=== PATIENT | female | born 1965 | race Caucasian/White ===

== ENCOUNTER 2019-10-27 08:57 | Outpatient (RCR) | payer OTHER, SELFPAY ==
--- NOTE | 2019-10-27 10:19 | PTOPEVAL ---
Thank you for referring Cindi Sun to [facility] [place]. Please review, sign, date and return this plan of care THAIS. I agree with and certify that the following plan of care is medically necessary. Referring Physician Date Admitting Provider: Attending Provider: Marco Alvarenga, Referring Provider: *PT Outpatient Evaluation Start: 10/27/19 09:11 Freq: Status: Active Protocol: Document 10/27/19 09:15 J (Rec: 10/27/19 09:52 [id number]) Therapy Assessment Status Assessment Status Assessment Status Evaluation Evaluation Information Problem Diagnosis neck pain, cervical radiculopathy Onset 10/21/19 Additional Evaluation Detail ndi = 56% Subjective Information patient reports she has been Query Text:As Reported By Patient/ having severe pain in the neck Family for about 1 year. she reports it is getting progressively worse. she reports she has had 3 disc replacements of the cervical spine. she reports her last surgery on the neck was in 2016. she reports she has a lot of pain, decreased mobility, and popping in the neck. she reports she has had x-rays but has not gotten the results yet. she reports she has pain down the L shoulder. she reports she does have some pain in the jaw. she reports she has increased pain with moving her head in any direction. she reports she has increased pain with driving, caring for her house, and getting dressed/doing hair. she reports she zacarias shave headaches that last all day. Prior Level of Function Comments Additional Prior Level of Function patient reports she does not Comments work. she reports she has had this pain for about a year, but has had other back and neck issues for more than a year. Pain Assessment Timing of Pain Assessment Timing of Pain Assessment Assessment Pain Scale Pain Scale Used Numeric (1 - 10) Self Report Pain Assessment Neck Reported Pain Level 7 Pain Description
--- NOTE | 2019-11-11 14:14 | PCPTNOTE ---
11/11/19-pt called and cancelled appointment for today, stating she is at Dr., and has to get x-ray for broken ribs. pt also cancelled Saturday's appointment for this week as well.-OWEN.
== END 2019-12-31 08:47 | disposition home or self-care (01) ==
LOC: CHSPT 08:57
PROVIDERS: PCP Family Medicine; Visit Provider Family Medicine
DX: M54.12 Radiculopathy, cervical region (principal); I10 Essential (primary) hypertension
CPT/HCPCS: 97014; 97110; 97162; G0283

== ENCOUNTER 2022-07-18 13:27 | Outpatient (RCR) | payer OTHER, SELFPAY ==
--- NOTE | 2022-07-18 13:44 | PTOPEVAL1 ---
Assessment and note entered by JT File, PT Evaluation Information Assessment Status Evaluation Diagnosis cervicalgia Subjective Information patient reports she is having an acute flare up of neck pain. she reports she has limited mobility, pain, and bad headaches by the end of the day. she reports she also feels she has lost strength in her L arm. she reports she has had bouts of pain like this in the past. she reports she has had 2 surgeries on her neck (3 disc replacements and fusions). she reports she has increased pain with daily activities and at the end of the day. she reports she does have pain and NTB into the L arm/ fingers. Reported Pain Level Pain Score 4: Self Report Assessment PT Clinical Summary mrs. rangel is a 56 yo woman who presents to skilled PT services for evaluation and treatment of acute on chronic cervical spine pain and L UE pain/symptoms. she presents this date with signs and symptoms of L cervical radiculopathy from DDD. she would benefit from continued skilled PT to improve her strength, rom, posture, and decrease pain to improve her quality of life and return to PLOF. Plan of Care Interventions Electrical Stimulation,Hot Pack/Cold Pack,Manual Therapy,Neuro Re-education,Patient/Caregiver Educati,Therapeutic Activities,Therapeutic Exercise PT Services Indicated Yes Treatment Frequency and 3x weekly for 12 visits Duration These treatments will address the objective and functional deficits as defined above. The patient will be advanced safely and appropriately in order for the patient to progress towards his/her prior level of function. Additional exercises will be introduced and as well as a comprehensive home exercise program upon discharge, if needed, ?to ensure carryover of functional gains achieved in the clinic. This treatment plan has been reviewed and agreement upon by the patient.
--- NOTE | 2022-09-06 11:31 | PTOPDC ---
Assessment and note entered by Dyan Rudolph, PT Evaluation Information Assessment Status Discharge Diagnosis cervicalgia Onset 07/05/22 Subjective Information Cindi Sun reports her neck is getting better. She is noting improved mobility but she still has pain and headaches. She notes the headaches and pain comes on later in the day now though. She has increased pain with driving, lifting with her arms, and performing yard work. She still has numbness in the left hand as well. She will be calling her MD for a follow up after her PT session. She feels PT has helped but has not fixed her problem. Reported Pain Level Pain Score 4: Self Report Assessment PT Clinical Summary Cindi Sun has completed 12 skilled PT visits for cervicalgia. She is reporting some improvements in cervical mobility but she still has pain and headaches. She is noting difficulty driving, lifting with her arms, and performing yard work. She objectively demonstrates decreased and painful cervical AROM, decreased left shoulder strength, and tension and tenderness in the cervical spine. She will be discharged from skilled PT and will be calling her surgeon. Plan of Care PT Services Indicated Yes
== END 2022-09-06 16:49 | disposition home or self-care (01) ==
LOC: CHSPT 13:27
PROVIDERS: PCP Family Medicine
DX: M54.12 Radiculopathy, cervical region (principal)
CPT/HCPCS: 97014; 97110; 97112; 97140; 97161; G0283

== ENCOUNTER 2022-08-22 12:41 | Emergency (ER) | payer OTHER, SELFPAY ==
[2022-08-22 12:45] VITALS: BP 131/91; PULSE 99; RESP 20; TEMP 37.3; O2SAT 100
--- NOTE | 2022-08-22 13:01 | ED.ABDPAIN ---
HPI - Abdominal Pain General Chief Complaint: Abdominal Pain Stated Complaint: abdominal pain Time Seen by Provider: 08/22/22 12:58 Source: patient Mode of arrival: ambulatory Limitations: no limitations History of Present Illness HPI narrative: 56-year-old female with a history of scoliosis status post multiple corrective surgeries, chronic neck pain, COPD, status post appendectomy presents to the ER with -- charlie horse in the right upper quadrant of the abdomen. The pain is intermittent and has been worse since yesterday. No fever. No nausea / vomiting. No dysuria or hematuria. MD elicited complaint: abdominal pain Onset (ago): day(s) ( started yesterday) Pain Consistency: intermittent Location: RUQ Severity: moderate Quality: cramping Radiation: none Migration to: no migration Exacerbating factors: nothing Relieving factors: nothing Associated symptoms: denies other symptoms Related Data Home Medications Medication Instructions Recorded Confirmed lisinopril 30 mg tablet 30 mg PO DAILY 08/22/22 08/22/22 metoprolol succinate 100 mg 100 mg PO DAILY 08/22/22 08/22/22 tablet,extended release 24 hr tiotropium bromide 18 mcg capsule 1 cap inhalation DAILY 08/22/22 08/22/22 with inhalation device (Spiriva with HandiHaler) Allergies Allergy/AdvReac Type Severity Reaction Status Date / Time No Known Allergies Allergy Verified 08/22/22 13:05 Review of Systems Review of Systems: All systems reviewed & are unremarkable except as noted in HPI and below Constitutional: Constitutional: Reports as per HPI and Reports no additional constitutional complaints Eyes: Eyes: Reports as per HPI and Reports no additional eye complaints ENT: Reports system reviewed and no additional complaints, except as documented and Reports as per HPI Cardiovascular: Cardiovascular: Reports as per HPI and Reports no additional cardiovascular complaints Respiratory: Respiratory: Reports as per HPI and Reports no additional respiratory complaints Gastrointestinal: Gastrointestinal: Reports as per HPI, Reports no additional gastrointestinal complaints and Reports abdominal pain Genitourinary: Genitourinary: Reports no additional female genitourinary complaints Musculoskeletal: Musculoskeletal: Reports no additional musculoskeletal complaints and Reports as per HPI Integumentary/Breasts: Skin/Breast: Reports system reviewed and no additional complaints, except as docu Neurologic: Reports system reviewed and no additional complaints, except as documented and Reports as per HPI Psychiatric: Psychiatric: Reports no additional psychiatric complaints and Reports as per HPI Endocrine: Endocrine: Reports no additional endocrine complaints and Reports as per HPI Hematologic/Lymphatic: Hematologic/Lymphatic: Reports no additional hematologic/lymphatic complaints and Reports as per HPI Allergic/Immunologic: Allergic/Immunologic: Reports no additional allergic/immunologic complaints and Reports as per HPI [facility] Past Medical History Medical History (Updated 08/22/22 @ 14:45 by Jeffry Romero MD) Asthma exacerbation in COPD Chronic low back pain Chronic neck pain Scoliosis Surgical History Surgical History (Updated 08/22/22 @ 13:13 by Jeffry Romero MD) Previous back surgery Exam Const: General: no acute distress Nutritional Appearance: thin Orientation/consciousness: patient oriented x3 Limitations: no limitations HENMT: Head: normal to inspection Ears: external ears normal Face/Nose/Sinus: Normal external nose present Face and sinus: normal facial exam Mouth: Yes Normal oral and palatal mucosa present Throat: posterior oropharynx normal Eyes: Conjunctivae: conjunctivae normal Pupils: Equal, round and reactive pupils present EOM: EOMs intact bilaterally Direct Ophthalmoscopy: no photophobia Neck: Neck: normal visual inspection, no lymphadenopathy and no meningeal signs Chest: Chest palpation & inspectio
[2022-08-22] MEDS: KETOROLAC 30 MG/ML VIAL (*BKC) IM (13:18)
[2022-08-22 13:25] LABS: Basophils Absolute Auto 0.03 K/mm3 (0.00-0.10); Basophils Percent Auto 0.5 % (0.0-1.0); Eosinophils Absolute Auto 0.12 K/mm3 (0.02-0.50); Hematocrit 40.1 % (35.0-49.0); Hemoglobin 12.8 g/dL (12.0-15.0); Immature Granulocyte Absolute 0.02 K/mm3 (0.00-0.00); Immature Granulocyte Percent A 0.3 % (0.0-0.0); Lymphocytes Absolute Auto 1.76 K/mm3 (1.10-4.50); Lymphocytes Percent Auto 28.7 % (18.0-42.0); Mean Corpuscular HGB Conc 31.9 g/dL (32.0-36.0); Mean Corpuscular Volume 94.1 fL (78.0-102.0); Mean Platelet Volume 10.3 fl (9.2-11.8); Monocytes Absolute Auto 0.49 K/mm3 (0.10-0.90); Neutrophils Absolute Auto 3.7 K/mm3 (1.7-7.2); Neutrophils Percent Auto 60.5 % (50.0-70.0); Platelet Count Result 271 K/mm3 (150-420); Red Blood Count 4.26 M/mm3 (4.20-5.40); Red Cell Distribution Width 13.2 % (11.6-14.4); White Blood Count 6.1 K/mm3 (4.8-10.8)
[2022-08-22 13:39] LABS: INR 0.9; Prothrombin Time 10.4 Seconds (9.50-12.10)
[2022-08-22 13:40] LABS: Alanine Aminotransferase 24 U/L (14-59); Albumin Level 3.8 g/dL (3.4-5.0); Alkaline Phosphatase 106 U/L (46-116); Anion Gap 8 mmol/L (8-16); Aspartate Amino Transferase 13 U/L (15-37); Bilirubin,Total 0.6 mg/dL (0.00-1.00); Blood Urea Nitrogen 19 mg/dL (7-18); Calcium 8.7 mg/dL (8.5-10.1); Carbon Dioxide 29 mmol/L (21-32); Chloride 101 mmol/L (98-108); Estimated CRCL calculation 58 ml/min; Estimated Glomerular Filt Rate > 60; Glucose 97 mg/dL (70-99); Lipase 25 U/L (16-77); Osmolality Calculated 288 mOsm/kg (285-295); Potassium 3.7 mmol/L (3.5-5.1); Sodium 138 mmol/L (136-145); Total Protein 7.2 g/dL (6.4-8.2)
[2022-08-22 13:45] LABS: Lactic Acid Reflex 0.8 mmol/L (0.4-2.0)
[2022-08-22 14:27] LABS: Appearance Urine Clear (Clear); Bilirubin Urine Negative (Negative); Blood Urine 1+ (Negative); Color Urine Yellow (Yellow); Glucose Urine UA Negative (Negative); Ketones Urine Negative (Negative); Leukocyte Esterase Ur Negative LEU/UL (Negative); Nitrate Urine Negative (Negative); Protein Urine Negative (Negative); Specific Grav Ur >= 1.030 (1.010-1.020); Urobilinogen Urine 0.2 mg/dL (0.2-1.0)
[2022-08-22 14:33] LABS: Add Urine Microscopic? YES; Calcium Oxalate Crystals Urine Present /hpf; Squamous Epithelial Cell Urine Occasional /hpf (Few); WBC Urine None seen /hpf (0-3)
[2022-08-22 14:34] LABS: Bacteria Urine Trace /hpf; Mucus Urine Moderate /lpf
[2022-08-22 14:52] VITALS: BP 120/94; PULSE 72; RESP 20; TEMP 36.6; O2SAT 99
== END 2022-08-22 15:02 | disposition home or self-care (01) ==
PROVIDERS: Emergency Provider Internal Medicine Critical Care Medicine; PCP Family Medicine
DX: R25.2 Cramp and spasm (principal); R10.11 Right upper quadrant pain
CPT/HCPCS: 36415; 80053; 81001; 83605; 83690; 85025; 85610; 96372; 99283; J1885

== ENCOUNTER 2022-08-27 13:23 | Outpatient (CLI) | payer OTHER, SELFPAY ==
--- NOTE | ~2022-08-27 | DEXA_ITS ---
Bone Density Report Name: DEBORAH MARCELINO Age: 57 Sex: Female Ethnicity: White Date of : 1965 Indication: postmenopausal; screening for osteoporosis; height loss; prior fracture; asthma or emphysema; Referring Provider: UNKNOWN, UNKNOWN Study: Bone densitometry was performed. Exam Date: August 27, 2022 Accession number: [id number] Bone Density: Region BMD T-score Z-score Classification Femoral Neck (Left) 0.784 -0.6 0.7 Normal Total Hip (Left) 0.820 -1.0 -0.1 Normal Femoral Neck (Right) 0.842 -0.1 1.2 Normal Total Hip (Right) 0.851 -0.7 0.1 Normal Femoral Neck Mean 0.813 -0.3 0.9 Normal Total Hip Mean 0.835 -0.9 0.0 Normal World Health Organization criteria for BMD impression classify patients as: Normal (T-score at or above -1.0), Osteopenia (T-score between -1.0 and -2.5), or Osteoporosis (T-score at or below -2.5). 10-year Fracture Risk: FRAX not reported because: All T-scores for Spine Total, Hip Total, Femoral Neck at or above -1.0 Prior hip or vertebral fracture Clinical Information Provided by Patient: Have had a previous hip or vertebral fracture Has had a low trauma fracture Smokes Has the following medical conditions: Asthma or Emphysema, COPD Patient maximum height was 68 Menopause Age: 43 No regular weight bearing exercise Drinks caffeinated beverages Onset of menses at age 10 Number of children 0 Impression: The patient has normal bone mass. The patient has risk factors, including: smoking, previous fracture. Discussion: INCREASED RISK OF FRACTURE DUE TO HISTORY OF FRACTURE. The patient's previous fracture puts the patient at high risk of a future fracture. In untreated patients, the risk of osteoporotic fracture increases approximately two-fold for each 1.0 SD decrease in T-score. Low bone density is not the only risk factor for fracture; also consider factors such as patient's age, frailty or poor health, risk of falling, risk of injury, previous osteoporotic fracture, family history of osteoporosis, cigarette smoking, low body weight, etc. Not everyone with a low trauma fracture has osteoporosis; osteomalacia and other metabolic bone disorders should also be considered. Patients who have osteoporosis should be evaluated for specific diseases and conditions (secondary causes) that may cause or contribute to bone loss and fracture risk. National Osteoporosis Foundation (NOF) recommends pharmacologic intervention for patients with a prior hip or vertebral fracture regardless of BMD T-score. The patient should follow a healthful lifestyle (good nutrition with adequate calcium and vitamin D, and appropriate weight-bearing exercise). Follow-Up: Consider a repeat BMD and Vertebral Fracture Assessment (VFA) exam in 2 years or sooner if medically necessary, to reassess this patient's status. Reported by: Dr. Hamilton Yuan on 08/27/2022 1:54:00 PM.
== END 2022-08-27 13:24 | disposition home or self-care (01) ==
LOC: CHSIMG 13:25
PROVIDERS: PCP Family Medicine
DX: Z78.0 Asymptomatic menopausal state (principal)
CPT/HCPCS: 77080

== ENCOUNTER 2023-07-22 14:15 | Outpatient (RCR) | payer OTHER, SELFPAY ==
--- NOTE | 2023-07-22 17:51 | PTOPEVAL1 ---
Assessment and note entered by Joao Puri Evaluation Information Assessment Status Evaluation Diagnosis lumbar radiculopathy, cervical radiculopathy Onset 07/08/23 Subjective Information Pt. reports that she has had back pain for many years. She states that lately she has developed spasms on the right side of the neck that radiate up into the head. She reports that she cannot stand for any duration before having to sit due to pain. She states that she has no social life currently due to pain. She states that she can stand for about 15 minutes before having to sit. She reports that sleep is difficult due to pain and her sleep is limited. She states that her goal for therapy is to decrease her pain. Reported Pain Level Pain Score 5,5: Self Report Assessment PT Clinical Summary Pt. is a 57 year old female who enters the clinic due to chronic low back and neck pain. Pt. presents with impaired postural awareness, impaired c-spine and l-spine ROM, impaired l.e. strength, functional decline and pain. continued skilled PT is indicated in order to improve these areas to allow the pt. to be able to complete IADL 's with improved efficiency and comfort. Plan of Care Interventions Electrical Stimulation,Hot Pack/Cold Pack,Manual Therapy,Neuro Re-education,Patient/Caregiver Educati,Therapeutic Activities,Therapeutic Exercise PT Services Indicated Yes Treatment Frequency and 2x/week x 10 visits Duration These treatments will address the objective and functional deficits as defined above. The patient will be advanced safely and appropriately in order for the patient to progress towards his/her prior level of function. Additional exercises will be introduced and as well as a comprehensive home exercise program upon discharge, if needed, ?to ensure carryover of functional gains achieved in the clinic. This treatment plan has been reviewed and agreement upon by the patient.
--- NOTE | 2023-07-22 17:52 | OPREHPOC ---
Outpatient Therapy Plan of Care This is a Multidisciplinary Plan of Care that may contain components documented by all disciplines (PT, OT, and ST.) PT Problem 1 PT Problem #1 Knowledge Deficit PT Goal 1 Goal Independent with a HEP addressing strength and mobility Target Visit 2 PT Problem 2 PT Problem #2 Impaired Range of Motion PT Goal 1 Goal Pt. will demonstrate 50 degrees bilateral c-spine rotation to improve visual field. Target Visit 10 PT Problem 3 PT Problem #3 Impaired Functional Mobil PT Goal 1 Goal Pt. will be able to stand for duration of 30 minutes with 5/10 pain at worst Pt. will be able to to lift small object from floor to waist in repetition without pain. Target Visit 10
--- NOTE | 2023-08-22 17:25 | OPREHPOC ---
Outpatient Therapy Plan of Care This is a Multidisciplinary Plan of Care that may contain components documented by all disciplines (PT, OT, and ST.) PT Problem 1 PT Problem #1 Knowledge Deficit PT Goal 1 Goal Independent with a HEP addressing strength and mobility Target Visit 2 Progress Met PT Problem 2 PT Problem #2 Impaired Range of Motion PT Goal 1 Goal Pt. will demonstrate 50 degrees bilateral c-spine rotation to improve visual field. Target Visit 20 Progress Not Met Comment New goal: Pt to demonstrate 30 degrees of bilateral c-spine rotation to improve visual field . PT Problem 3 PT Problem #3 Impaired Functional Mobil PT Goal 1 Goal Pt. will be able to stand for duration of 30 minutes with 5/10 pain at worst -progress towards Pt. will be able to to lift small object from floor to waist in repetition without pain. -met Target Visit 20 Comment continue
--- NOTE | 2023-08-22 17:26 | PTOPPROG ---
Assessment and note entered by Dyan Rudolph, PT Evaluation Information Assessment Status Progress Diagnosis lumbar radiculopathy, cervical radiculopathy Onset 07/08/23 Subjective Information Cindi Sun reports her neck is not much better but her lower back is better. She is noting less pain and she is able to tolerate one position for longer periods. She is now able to stand for 20 minutes before needing to sit for 5 mins. She has difficulty tolerating car rides of > than one hour . As far as her neck, she notes any activity increases her pain and she has a headache by the end of the day every day. She notes less headache pain if she lays down for 15 minutes. She has difficulty turning her head and holding her head up. Assessment PT Clinical Summary Cindi Sun has completed 10 skilled PT visits for cervical and lumbar pain. She is reporting her lower back pain is less frequent and she is able to tolerate one position for longer periods now. She does not notice much change with her cervical spine except temporary relief of pain following PT session. She is noting increased pain with activity, difficulty turning her head, and a headache by the end of the day. She objectively demonstrates ongoing deficits in cervical and lumbar AROM, decreased core and neck strength, altered posture, and pain limiting tolerance to daily activities. She will continue to benefit from skilled PT to further address these limitations. Plan of Care Interventions Electrical Stimulation,Hot Pack/Cold Pack,Manual Therapy,Patient/Caregiver Educati,Therapeutic Activities,Therapeutic Exercise PT Services Indicated Yes Treatment Frequency and Continue skilled PT 2 times a week for 10 visits. Duration These treatments will address the objective and functional deficits as defined above. The patient will be advanced safely and appropriately in order for the patient to progress towards his/her prior level of function. Additional exercises will be introduced and as well as a comprehensive home exercise program upon discharge, if needed, ?to ensure carryover of functional gains achieved in the clinic. This treatment plan has been reviewed and agreement upon by the patient.
--- NOTE | 2023-09-04 09:05 | PCPTNOTE ---
No call no show this date. Voicemail left for patient.
--- NOTE | 2023-12-23 07:34 | PCPTNOTE ---
Mrs. Sun attended a total of 15 treatment sessions from 07/22/23 to 09/12/23. In this time she provided consistent pain reports, but demonstrated a gradual increase in activity tolerance. She has failed to return to the clinic since her last appointment o 09/12/23 and has not contacted the clinic. She will be discharged from our car at this time. Thank you for the referral of this patient. Joao Puri, MPT
== END 2023-09-12 23:59 | disposition home or self-care (01) ==
LOC: CHSPT 14:15
PROVIDERS: Visit Provider Orthopaedic Surgery Orthopaedic Surgery of the Spine
DX: M41.9 Scoliosis, unspecified (principal); M54.16 Radiculopathy, lumbar region; M54.12 Radiculopathy, cervical region; M54.50 Low back pain, unspecified; G89.29 Other chronic pain
CPT/HCPCS: 97014; 97110; 97140; 97161; 97750; G0283